=== PATIENT | male | born 1940 | race African-American/Black ===

== ENCOUNTER → 2016-10-04 | Outpatient (CLI) | payer MEDICARE, OTHER | LOC: RAD 11:15 | DX: J18.1 Lobar pneumonia, unspecified organism (principal); R19.8 Other specified symptoms and signs involving the digestive system and abdomen | CPT/HCPCS: 71020 ==

== ENCOUNTER 2020-05-18 17:57 | Inpatient (IN) | payer MEDICARE, OTHER ==
[~2020-05-18] VITALS: Ht 172.7 cm; Wt 86.2 kg
[~2020-05-18 17:57] MED LIST: ASPIRIN CHEWABL81 MG PO; CYCLOBENZAPRINE10 MG PO; DEPO-TESTO200 MG/1 M IM; LIPITOR TAB 2020 MG PO; LORTAB 5-325 M1 EACH PO; NEURONTIN800 MG PO; NITROSTAT0.4 MG SL; NORCO 10-325 T1 EACH PO; NORVASC 5 MG TAB5 MG PO; OMEPRAZOLE20 M1 PO; PAXIL10 MG PO; PROSCAR 5 MG TAB5 MG PO; VENTOLIN HFA 66.7 GM INH
[2020-05-18 19:20] LABS: HEMOGLOBIN 14.9 gm/dl (14.0-17.5); RED BLOOD COUNT 5.09 M/UL (4.20-5.50); WHITE BLOOD COUNT 10.9 K/UL (4.5-11.0)
[2020-05-18 19:43] LABS: BUN/CREATININE RATIO 16 (0-10)
[2020-05-19 04:07] LABS: HEMOGLOBIN 13.4 gm/dl (14.0-17.5); WHITE BLOOD COUNT 10.2 K/UL (4.5-11.0)
[2020-05-19 04:08] LABS: RED BLOOD COUNT 4.58 M/UL (4.20-5.50)
[2020-05-19 04:54] LABS: BUN/CREATININE RATIO 17 (0-10)
[2020-05-19] MEDS ORDERED: GABAPENTIN800 MG PO (17:41)
[2020-05-19] MEDS ORDERED: HYDROCODON-ACE1 EAC6 PO (17:42)
[2020-05-19] MEDS ORDERED: IPRAT-ALBUT 0.5-3 ML INH (17:43)
[2020-05-19] MEDS ORDERED: LIPITOR TAB 2020 MG PO (17:45)
[2020-05-19] MEDS ORDERED: CYCLOBENZAPRINE10 MG PO (17:47)
[2020-05-19] MEDS ORDERED: ALL DAY ALLERGY10 M2 PO (17:58)
[2020-05-20 09:09] LABS: HEMOGLOBIN 13.9 gm/dl (14.0-17.5); RED BLOOD COUNT 4.64 M/UL (4.20-5.50); WHITE BLOOD COUNT 9.9 K/UL (4.5-11.0)
[2020-05-20 09:37] LABS: BUN/CREATININE RATIO 15 (0-10)
[2020-05-21 06:43] LABS: WHITE BLOOD COUNT 9.9 K/UL (4.5-11.0)
[2020-05-21 06:44] LABS: HEMOGLOBIN 11.8 gm/dl (14.0-17.5); RED BLOOD COUNT 4.08 M/UL (4.20-5.50)
[2020-05-21 07:23] LABS: BUN/CREATININE RATIO 21 (0-10)
[2020-05-22 04:56] LABS: HEMOGLOBIN 13.6 gm/dl (14.0-17.5); WHITE BLOOD COUNT 11.9 K/UL (4.5-11.0)
[2020-05-22 04:57] LABS: RED BLOOD COUNT 4.71 M/UL (4.20-5.50)
[2020-05-22 05:26] LABS: BUN/CREATININE RATIO 18 (0-10)
[2020-05-22] MEDS ORDERED: IPRAT-ALBUT 0.5-3 ML NEB (11:22)
[2020-05-22] MEDS ORDERED: CYCLOBENZAPRINE10 MG PO (11:22)
[2020-05-22] MEDS ORDERED: AMLODIPINE BESYL5 MG PO (11:22)
[2020-05-22] MEDS ORDERED: GABAPENTIN300 MG PO (11:22)
[2020-05-22] MEDS ORDERED: DOXYCYCLINE HY100 M2 PO (11:34)
[2020-05-22] MEDS ORDERED: IPRAT-ALBUT 0.5-3 ML INH (11:34)
== END 2020-05-22 21:55 | DRG 564 ==
LOC: ER1 17:57 → MED SURG 4 20:25 → ZEROF 21:38 → MED SURG 4 21:38 → ZEROF 21:38 → CDU 05-19 13:43 → MED SURG 4 05-19 20:21
PROVIDERS: Internal Medicine; Physician Assistant; ADMIT Internal Medicine
DX: T79.6XXA Traumatic ischemia of muscle, initial encounter (principal); G93.41 Metabolic encephalopathy; J44.1 Chronic obstructive pulmonary disease with (acute) exacerbation; E87.1 Hypo-osmolality and hyponatremia; J96.11 Chronic respiratory failure with hypoxia; E87.2 Acidosis; F17.210 Nicotine dependence, cigarettes, uncomplicated; E86.0 Dehydration; G72.9 Myopathy, unspecified; I10 Essential (primary) hypertension; R53.1 Weakness; R41.82 Altered mental status, unspecified; K21.9 Gastro-esophageal reflux disease without esophagitis; K59.00 Constipation, unspecified; N40.0 Benign prostatic hyperplasia without lower urinary tract symptoms; E78.5 Hyperlipidemia, unspecified; F11.10 Opioid abuse, uncomplicated; Z86.16 Personal history of COVID-19; Z99.81 Dependence on supplemental oxygen; Z91.81 History of falling; Z88.0 Allergy status to penicillin; Z86.73 Personal history of transient ischemic attack (TIA), and cerebral infarction without residual deficits
CPT/HCPCS: 36415; 36600; 70496; 70498; 71045; 72125; 80048; 80053; 81001; 82140; 82550; 82553; 82803; 83605; 83735; 83874; 83880; 84100; 84484; 85025; 85027; 85610; 85652; 85730; 86140; 87040; 87086; 93005; 94640; 94664; 94760; 96365; 96366; 96372; 96375; 97110; 97163; 97166; 99285; G0378; J0360; J1630; J2060; J2920; J3486; J7030; Q9967; U0002